=== PATIENT | female | born 1940 | race Two or more races ===

== ENCOUNTER 2019-02-12 12:23 | Outpatient (CLI) | payer OTHER ==
[~2019-02-12 12:23] MED LIST: DIOVAN320 MG PO; JANUVIA100 MG PO; LIPITOR PO; METFORMIN HCL500 MG PO; NEURONTIN300 MG PO; NORVASC5 MG PO
== END 2019-02-12 12:27 | disposition home or self-care (01) ==
LOC: RAD 12:23
DX: S80.01XA Contusion of right knee, initial encounter (principal); S80.02XA Contusion of left knee, initial encounter

== ENCOUNTER 2019-02-18 08:41 | Outpatient (CLI) | payer OTHER | END 2019-02-18 08:47 | disposition home or self-care (01) | LOC: MRI 08:41 | DX: M25.561 Pain in right knee (principal) | CPT/HCPCS: 73721 ==

== ENCOUNTER → 2021-01-20 15:43 | Outpatient (CLI) | payer OTHER | END | disposition home or self-care (01) | LOC: RAD 15:43 | PROVIDERS: ATTEND Psychiatry & Neurology Psychiatry | DX: J20.8 Acute bronchitis due to other specified organisms (principal) ==

== ENCOUNTER 2021-02-23 09:47 | Outpatient (CLI) | payer OTHER | END 2021-02-23 09:48 | disposition home or self-care (01) | LOC: SONOGRAMA 09:47 | PROVIDERS: ATTEND Psychiatry & Neurology Psychiatry | DX: K76.0 Fatty (change of) liver, not elsewhere classified (principal); K76.89 Other specified diseases of liver; Q61.02 Congenital multiple renal cysts; R16.0 Hepatomegaly, not elsewhere classified ==

== ENCOUNTER 2023-03-20 15:56 | Outpatient (CLI) | payer OTHER | END 2023-03-20 16:07 | disposition home or self-care (01) | LOC: TOM 15:56 | DX: S09.90XA Unspecified injury of head, initial encounter (principal); W06.XXXA Fall from bed, initial encounter ==

== ENCOUNTER 2024-08-13 07:47 | Outpatient (CLI) | payer OTHER | END 2024-08-13 07:50 | disposition home or self-care (01) | LOC: SONOGRAMA 07:47 | PROVIDERS: ATTEND Internal Medicine Nephrology | DX: N18.4 Chronic kidney disease, stage 4 (severe) (principal); N39.3 Stress incontinence (female) (male) ==